=== PATIENT | female | born 1945 | race Caucasian/White ===

== ENCOUNTER 2019-02-25 02:23 | Outpatient (CLI) | payer MEDICARE, BC | END 2019-02-25 23:59 | disposition home or self-care (01) | LOC: RT 02:23 | PROVIDERS: ATTEND Internal Medicine Critical Care Medicine | DX: J44.9 Chronic obstructive pulmonary disease, unspecified (principal); J45.998 Other asthma; G47.30 Sleep apnea, unspecified; Z90.710 Acquired absence of both cervix and uterus; Z96.652 Presence of left artificial knee joint; Z79.899 Other long term (current) drug therapy | CPT/HCPCS: 94618 ==

== ENCOUNTER 2020-05-03 06:32 | Day surgery (SDC) | payer MEDICARE, BC ==
[2020-04-24 14:07] LABS: BASOPHILS # (AUTO) 0.1 X10'3 (0-0.2); EOSINOPHILS # (AUTO) 0.5 X10'3 (0-0.9); EOSINOPHILS % (AUTO) 4.3 % (0-6); LYMPHOCYTES # (AUTO) 3.6 X10'3 (1.1-4.8); LYMPHOCYTES % (AUTO) 32.7 % (21-51); MEAN CORPUSCULAR HEMOGLOBIN 27.2 PG (27.0-31.0); MEAN CORPUSCULAR HGB CONC 32.9 g/dL (33.0-36.5); MEAN CORPUSCULAR VOLUME 82.8 FL (78-98); MEAN PLATELET VOLUME 6.6 FL (7.4-10.4); MONOCYTES # (AUTO) 0.8 X10'3 (0-0.9); MONOCYTES % (AUTO) 7.1 % (2-12); NEUTROPHILS % (AUTO) 54.9 % (42-75); PRE OP HEMATOCRIT 34.2 % (35.0-45.0); PRE OP HEMOGLOBIN 11.2 g/dL (12.0-16.0); PRE OP PLATELET COUNT 458 X10'3 (140-440); RED BLOOD COUNT 4.13 X10'6 (4.20-5.60)
[2020-04-24 14:18] LABS: ALBUMIN 3.4 G/DL (3.4-5.0); ALBUMIN/GLOBULIN RATIO 0.8 (1.1-1.5); ALKALINE PHOSPHATASE 172 IU/L (46-116); BLOOD UREA NITROGEN 11 MG/DL (7-18); BUN/CREATININE RATIO 15.5 (6.6-38.0); CALCIUM 8.6 MG/DL (8.5-10.1); CHLORIDE 101 MMOL/L (99-107); CREATININE 0.71 MG/DL (0.40-0.90); PRE OP ALT 59 U/L (30-65); PRE OP ANION GAP 6 (8-16); PRE OP AST 30 U/L (10-37); PRE OP BILIRUB, TOTAL 0.2 MG/DL (0.0-1.0); PRE OP GLUCOSE 91 MG/DL (70-104); PRE OP SODIUM 136 MMOL/L (135-145); TOTAL CARBON DIOXIDE 29.2 MMOL/L (24-32); TOTAL PROTEIN 7.6 G/DL (6.4-8.2); eGFR 80 ML/MIN
--- NOTE | 2020-04-24 15:35 | NUR ---
PT HERE FOR KNEE REPLACEMENT PRE-OP. TO LAB FOR BLOOD AND EKG. EKG SHOWED A.FIB, RATE OF 45. DR KUMAR NOTIFIED. SURG CANCELED BY PIERCE. PT TAKEN TO ER. SAO2 STABLE ON ARRIVAL. NURSE IN ROOM TO ACCEPT PT
[2020-05-03] VITALS (13 sets, daily range): BP systolic 95–145; BP diastolic 53–76
[~2020-05-03] VITALS: Ht 152.4 cm; Wt 99.0 kg
[~2020-05-03 06:32] MED LIST: AMLO2.5T5 PO; GABA-530 PO; HYDR-3972 PO; IBUP-24 PO; NORT25CA PO; SERT100T10 PO; cefazolin/dext.iso 2gm/50ml 50 ML IV ONE; famotidine 10mg tablet PO ONE; ringers solution, lacted 1,000 ML IV SCH
[2020-05-03] MEDS ORDERED: sevoflurane 250ml liquid IH ONE (08:04)
[2020-05-03] MEDS ORDERED: fentaNYL/PF 50MCG/1 ML 2ML syringe ONE (08:07)
[2020-05-03] MEDS ORDERED: midazolam 2 mg/2 ml injection ONE (08:08)
[2020-05-03] MEDS ORDERED: propofol inj 20 ML IV ONE (08:09)
[2020-05-03] MEDS ORDERED: cloNIDine hcl/PF 100mcg/ml inj ONE (08:09)
[2020-05-03] MEDS ORDERED: morphine 4 MG/ML inj SYRINge IV PRN (08:55)
[2020-05-03] MEDS ORDERED: proCHLORperazine 10 MG/2 ml inj IV PRN (08:55)
[2020-05-03] MEDS ORDERED: meperidine/PF 25mg/ml syringe IV PRN ×3 (08:55)
[2020-05-03] MEDS ORDERED: ringers solution, lacted 1,000 ML IV SCH (08:55)
[2020-05-03] MEDS ORDERED: morphine 2 MG/ML inj. syringe IV PRN (08:55)
[2020-05-03] MEDS ORDERED: ondansetron/PF 4mg/2ml inj IV PRN (08:55)
[2020-05-03] MEDS ORDERED: ceFAZolin 1000mg inj ONE (09:11)
[2020-05-03] MEDS ORDERED: ROPIVAcaine 0.5% (5mg/ml) 30ml vial ONE (09:39)
--- NOTE | 2020-05-03 10:10 | NUR ---
Received from OR via BED, accompanied by Anesthesiologist DR RAY-- and report given by Anesthesiolgist. PATIENT A&OX4, DENIES PAIN, V/S WNL, NEUROVASCULAR CHECKS INTACT, 20G PIV RUE, SCD ON, SPLINT DRESSING TO LEFT FOOT CDI
--- NOTE | 2020-05-03 11:50 | NUR ---
PATIENT A&OX4, DENIES PAIN, V/S WNL, NEUROVASCULAR CHECKS INTACT, 20G PIV RUE D/C, SCD OFF, SPLINT DRESSING TO LEFT FOOT CDI . I HAVE REVIEWED D/C INSTRUCTIONS WITH PATIENT AND FAMILY AND THEY HAVE VERBALIZED UNDERSTANDING. PATIENT D/C HOME WITH ALL BELONGINGS AND FAMILY GAVE TRANSPORT HOME.
== END 2020-05-03 11:50 | disposition home or self-care (01) ==
LOC: PAS 06:32
PROVIDERS: ATTEND Orthopaedic Surgery
DX: S96.012A Strain of muscle and tendon of long flexor muscle of toe at ankle and foot level, left foot, initial encounter (principal); M19.072 Primary osteoarthritis, left ankle and foot; G89.18 Other acute postprocedural pain; J44.9 Chronic obstructive pulmonary disease, unspecified; G47.30 Sleep apnea, unspecified; M19.90 Unspecified osteoarthritis, unspecified site; F32.9 Major depressive disorder, single episode, unspecified; K21.9 Gastro-esophageal reflux disease without esophagitis; I10 Essential (primary) hypertension; E66.9 Obesity, unspecified; Z88.8 Allergy status to other drugs, medicaments and biological substances; Z20.828 Contact with and (suspected) exposure to other viral communicable diseases; Z79.899 Other long term (current) drug therapy; Z98.890 Other specified postprocedural states; Z90.710 Acquired absence of both cervix and uterus; Z96.653 Presence of artificial knee joint, bilateral; X58.XXXA Exposure to other specified factors, initial encounter; Y93.89 Activity, other specified; Y92.89 Other specified places as the place of occurrence of the external cause; Y99.8 Other external cause status
CPT/HCPCS: 27658; 28725; 36415; 64445; 73620; 76000; 76942; 80053; 82948; 85025; 87635; C1713; J0690; J0735; J2250; J2704; J3010; J7120; A4215; A4618; A6449; A7000; J2795